=== PATIENT | female | born 1950 | race African-American/Black ===

== ENCOUNTER → 2016-11-11 | Outpatient (CLI) | payer MEDICARE, BC ==
[2014-05-14 08:44] VITALS: BP 109/64
[~2016-11-11] MED LIST: ESTR1TAB15 PO; MEDR2.5T28 PO
--- NOTE | 2016-11-14 16:44 | RAD ---
DATE: 11/14/2016 EXAM: MAMMO CHIDI SCREENING BILATERAL HISTORY: Astigmatic screening mammogram. COMPARISON: Mammogram 12/22/2015, 06/08/2015, 11/29/2013 This study was interpreted with the benefit of Computerized Aided Detection (CAD). The breast parenchyma shows scattered fibroglandular densities. Breast parenchyma level B. FINDINGS: Bilateral CC and MLO views of the breast were performed. Bilateral breasts tomosynthesis acquired. Right breast: No suspicious microcalcifications, masses or areas of architectural distortion . Left breast: No suspicious microcalcifications, masses or areas of architectural distortion. No abnormality identified on breast tomosynthesis. Findings are stable from the prior mammogram. IMPRESSION: Negative bilateral mammogram. Recommend annual screening mammography. BI-RADS CATEGORY: 1 NEGATIVE RECOMMENDED FOLLOW-UP: 12M 12 MONTH FOLLOW-UP PQRS compliance statement: Patient information was entered into a reminder system with a target due date 11/14/2017 for the next mammogram. Mammography is a sensitive method for finding small breast cancers, but it does not detect them all and is not a substitute for careful clinical examination. A negative mammogram does not negate a clinically suspicious finding and should not result in delay in biopsying a clinically suspicious abnormality. "Our facility is accredited by the [employer] Mammography [employer]."
== END | disposition home or self-care (01) ==
LOC: MAMMO 09:08
PROVIDERS: ATTEND Family Medicine
DX: Z12.31 Encounter for screening mammogram for malignant neoplasm of breast (principal)
CPT/HCPCS: 77063; G0202; 77067

== ENCOUNTER → 2017-06-05 | Outpatient (CLI) | payer MEDICARE, BC ==
[2014-05-14 08:44] VITALS: BP 109/64
--- NOTE | 2017-06-05 15:54 | RAD ---
Three-view left shoulder study History: Left shoulder pain. Findings: No acute fracture or dislocation or osteolytic process is seen. 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 IMPRESSION: No acute osseous abnormality.
== END | disposition home or self-care (01) ==
LOC: RAD 13:16
PROVIDERS: ATTEND Orthopaedic Surgery Sports Medicine
DX: M19.012 Primary osteoarthritis, left shoulder (principal)
CPT/HCPCS: 73030

== ENCOUNTER → 2017-11-20 | Outpatient (CLI) | payer MEDICARE, BC ==
[2014-05-14 08:44] VITALS: BP 109/64
--- NOTE | 2017-11-21 09:42 | RAD ---
DATE: 11/20/2017 EXAM: MAMMO CHIDI SCREENING BILATERAL HISTORY: Routine screening COMPARISON: 11/11/2016 This study was interpreted with the benefit of Computerized Aided Detection (CAD). The breast parenchyma shows scattered fibroglandular densities. Breast parenchyma level B. FINDINGS: 2-D and 3-D tomosynthesis imaging was performed in CC and MLO projections. A small benign-appearing lymph node type density is again noted laterally in the right breast. No new or enlarging breast densities are seen. Minimal scattered microcalcifications are present. No suspicious microcalcifications have developed. IMPRESSION: Stable mammograms without evidence of malignancy. BI-RADS CATEGORY: 2 BENIGN FINDING(S) RECOMMENDED FOLLOW-UP: 12M 12 MONTH FOLLOW-UP PQRS compliance statement: Patient information was entered into a reminder system with a target due date for the next mammogram. Mammography is a sensitive method for finding small breast cancers, but it does not detect them all and is not a substitute for careful clinical examination. A negative mammogram does not negate a clinically suspicious finding and should not result in delay in biopsying a clinically suspicious abnormality. "Our facility is accredited by the [employer]ammography [employer]."
== END | disposition home or self-care (01) ==
LOC: MAMMO 11:03
PROVIDERS: ATTEND Family Medicine
DX: Z12.31 Encounter for screening mammogram for malignant neoplasm of breast (principal); M19.012 Primary osteoarthritis, left shoulder
CPT/HCPCS: 77063; 77067

== ENCOUNTER 2018-05-02 06:11 | Emergency (ER) | payer MEDICARE, BC ==
[~2018-05-02] VITALS: Ht 165.1 cm; Wt 78.0 kg
[2018-05-02 06:29] VITALS: BP 158/84
[2018-05-02] MEDS ORDERED: MELO7.5T29 PO (06:43)
[2018-05-02] MEDS ORDERED: AMOX500C PO (06:43)
[2018-05-02] MEDS ORDERED: D-ME118S2 PO (06:44)
--- NOTE | 2018-05-02 06:44 | PHYS DOC ---
Past History Past Medical History: GERD Past Surgical History: Other Smoking: Non-smoker Alcohol Use: None Drug Use: None Adult General Chief Complaint Chief Complaint: Neck Pain HPI HPI Patient is a 67 year old female who presents with neck pain and generalized malaise. This started last night. Patient took ibuprofen which helps but patient awoke at 4:00 this morning with continued symptoms. Patient denies any chest pain. Denies any focal weakness. Denies any fever. Patient reports that she has postnasal drainage but this has been present since an upper respiratory infection approximately 6 years ago. Patient has had similar symptoms previously with an otitis media. Nothing makes current symptoms better or worse. No worsening with exertion or repetitive use. Symptoms are moderate in intensity. Patient presents omeprazole as the medication that she is supposed to be taking for her dizziness.[] Review of Systems Review of Systems Constitutional: Denies fever or chills [] Eyes: Denies change in visual acuity, redness, or eye pain [] HENT: Denies nasal congestion or sore throat [] Respiratory: Denies cough or shortness of breath [] Cardiovascular: No chest pain or palpitations[] GI: Denies abdominal pain, nausea, vomiting, bloody stools or diarrhea [] : Denies dysuria or hematuria [] Musculoskeletal: Denies back pain, 5 days ago she had knee pain after bowling. This has subsequently resolved with ibuprofen[] Integument: Denies rash or skin lesions [] Neurologic: Denies headache, focal weakness or sensory changes [] Endocrine: Denies polyuria or polydipsia [] All other systems were reviewed and found to be within normal limits, except as documented in this note. Allergies Allergies Allergies Coded Allergies Type Severity Reaction Last Updated Verified No Known Drug Allergies 05/02/18 No Physical Exam Physical Exam Constitutional: Well developed, well nourished, no acute distress, non-toxic appearance. [] HENT: Normocephalic, atraumatic, bilateral external ears normal, no pain with tragus tugging. No narrowing or erythematous ear canals. TM on the right is inflamed and slightly bulging, no perforated TM. No mastoid tenderness. Oropharynx moist, no oral exudates, nose normal. [] Eyes: PERRLA, EOMI, conjunctiva normal, no discharge. [] Neck: Normal range of motion, no tenderness, supple, no stridor. Right-sided posterior chain lymphadenopathy is present[] Cardiovascular:Heart rate regular rhythm, no murmur [] Lungs & Thorax: Bilateral breath sounds clear to auscultation [] Abdomen: Bowel sounds normal, soft, no tenderness, no masses, no pulsatile masses. [] Skin: Warm, dry, no erythema, no rash. [] Back: No tenderness, no CVA tenderness. [] Extremities: No tenderness, no cyanosis, no clubbing, ROM intact, no edema. [] Neurologic: Alert and oriented X 3, normal motor function, normal sensory function, no focal deficits noted. Normal rapid repetitive and alternating movements. [] Psychologic: Affect normal, judgement normal, mood normal. [] EKG EKG [] Radiology/Procedures Radiology/Procedures [] Course & Med Decision Making Course & Med Decision Making Pertinent Labs and Imaging studies reviewed. (See chart for details) Medical decision making: Patient appears to have an otitis media potentially complicated by her long-standing postnasal drainage. There is no evidence of a stroke syndrome. There is no evidence of an acute coronary syndrome. No evidence of meningitis or encephalitis.[] Dragon Disclaimer Dragon Disclaimer This electronic medical record was generated, in whole or in part, using a voice recognition dictation system. Departure Departure: Impression: Primary Impression: Otitis media Additional Impression: Malaise Disposition: 01 HOME, SELF-CARE Condition: IMPROVED Referrals: ARINA SHERIDAN MD (PCP) Follow-up in 2 days Patient Instructions: Otitis Media, Adult, Weakness Additional Instructions: Drink plenty of fluids. Follow-up with your regular doctor in 2 days. Take your medication as prescribed. Return to the ER if you develop a fever of more than 101, chest pain, difficulty breathing, or any other concerns. Scripts D-Methorphan Hb/Prometh Hcl (PROMETHAZINE-DM SYRUP) 118 Ml Syrup 5 ML PO PRN Q4HRS for CONGESTION, #120 ML Prov: BERTHA THOMAS DO 05/02/18 Meloxicam (MELOXICAM) 7.5 Mg Tablet 7.5 MG PO DAILY for PAIN, #20 TAB Prov: BERTHA THOMAS DO 05/02/18 Amoxicillin (AMOXICILLIN) 500 Mg Capsule 1 CAP PO BID for ear infection, #20 CAP Prov: BERTHA THOMAS DO 1/30/19 Problem Qualifiers Primary Impression: Otitis media Otitis media type: unspecified Chronicity: acute Qualified Codes: H66.90 - Otitis media, unspecified, unspecified ear BERTHA THOMAS DO May 02, 2018 06:44
== END 2018-05-02 06:49 | disposition home or self-care (01) ==
LOC: ER 06:11
DX: H66.91 Otitis media, unspecified, right ear (principal); M54.2 Cervicalgia; R53.81 Other malaise; R59.1 Generalized enlarged lymph nodes; K21.9 Gastro-esophageal reflux disease without esophagitis
CPT/HCPCS: 99283

== ENCOUNTER → 2019-01-12 | Outpatient (CLI) | payer MEDICARE, BC ==
[~2019-01-12] MED LIST changes: +AMOX500C PO; +MELO7.5T29 PO; +PROM118S9 PO
--- NOTE | 2019-01-12 14:18 | RAD ---
KNEE RIGHT 3V, FOOT LEFT 3V, ANKLE LEFT 3V History: Left ankle swelling and pain, right knee pain and swelling, no known injury Comparison: None. Left ankle radiographs FINDINGS: 3 views of the left ankle are submitted. There are dorsal and plantar calcaneal enthesophytes. No acute fracture or dislocation is identified. There is some soft tissue swelling about the ankle. IMPRESSION: 1. There is some nonspecific soft tissue swelling. 2. There are calcaneal enthesophytes. Left foot radiographs FINDINGS: 3 views left foot are submitted. There is hallux valgus deformity. No acute fracture or dislocation is identified. There is degenerative change of the proximal foot. IMPRESSION: 1. No acute osseous abnormality is identified. Right knee radiographs: Findings: 3 views of the right knee are submitted. There is fairly advanced osteoarthritic change of the lateral compartment, to lesser degree of medial compartment and patellofemoral articulation. There is mild chondrocalcinosis. There is no significant joint effusion. On the lateral view, there is ossific body anteriorly although donor site from fracture not confidently identified by radiograph. There is nonspecific sclerosis of the proximal fibula. Impression: 1. There is tricompartmental osteoarthritic change greatest of the lateral compartment. 2. There is an ossific body anteriorly to the proximal tibia although donor site not confidently identified by radiograph and there is no significant history of recent trauma. 3. There is nonspecific sclerosis of proximal fibula. Electronically signed by: Ze Menard MD (01/12/2019 2:16 PM) [facility]
== END | disposition home or self-care (01) ==
LOC: RAD 11:25
PROVIDERS: ATTEND Nurse Practitioner Adult Health
DX: M17.11 Unilateral primary osteoarthritis, right knee (principal); M11.261 Other chondrocalcinosis, right knee; M77.32 Calcaneal spur, left foot
CPT/HCPCS: 73562; 73610; 73630

== ENCOUNTER → 2019-01-22 | Outpatient (CLI) | payer MEDICARE, BC ==
--- NOTE | 2019-01-22 19:29 | RAD ---
DATE: 01/22/2019 EXAM: MAMMO CHIDI SCREENING BILATERAL HISTORY: Routine screening COMPARISON: 06/08/2015, 11/11/2016, 11/20/2017 mammographic exams This study was interpreted with the benefit of Computerized Aided Detection (CAD). Breast Density: SCATTERED The breast parenchyma shows scattered fibroglandular densities. Breast parenchyma level B. FINDINGS: No suspicious calcification, masses, or distortion. IMPRESSION: Stable BI-RADS CATEGORY: 2 BENIGN FINDING(S) RECOMMENDED FOLLOW-UP: 12M 12 MONTH FOLLOW-UP PQRS compliance statement: Patient information was entered into a reminder system with a target due date for the next mammogram. Mammography is a sensitive method for finding small breast cancers, but it does not detect them all and is not a substitute for careful clinical examination. A negative mammogram does not negate a clinically suspicious finding and should not result in delay in biopsying a clinically suspicious abnormality. "Our facility is accredited by the [employer] Mammography Program."
== END | disposition home or self-care (01) ==
LOC: MAMMO 11:16
PROVIDERS: ATTEND Family Medicine
DX: Z12.31 Encounter for screening mammogram for malignant neoplasm of breast (principal)
CPT/HCPCS: 77063; 77067

== ENCOUNTER 2019-01-28 13:13 | Emergency (ER) | payer MEDICARE, BC ==
[2019-01-28] MEDS ORDERED: IV NORMAL SALINE 1,000ML 1,000 ML IV SCH (13:44)
[2019-01-28 13:56] LABS: BASO % 0 % (0-3); EOS % 1 % (0-3); HEMATOCRIT 37.7 % (36.0-47.0); HEMOGLOBIN 12.3 g/dL (12.0-15.5); LYMPH # 1.4 x10^3/uL (1.0-4.8); LYMPH % 28 % (24-48); MEAN CORPUSCULAR HEMOGLOBIN 30 pg (25-35); MEAN CORPUSCULAR HGB CONC 33 g/dL (31-37); MEAN CORPUSCULAR VOLUME 93 fL (79-100); MONO # 0.3 x10^3/uL (0.0-1.1); MONO % 6 % (0-9); NEUT # 3.4 x10^3uL (1.8-7.7); NEUT % 66 % (31-73); PLATELET COUNT 222 x10^3/uL (140-400); RED BLOOD COUNT 4.06 x10^6/uL (3.50-5.40); RED CELL DISTRIBUTION WIDTH 13.2 % (11.5-14.5); WHITE BLOOD COUNT 5.1 x10^3/uL (4.0-11.0)
[2019-01-28 14:13] LABS: ALBUMIN 3.6 g/dL (3.4-5.0); ALBUMIN/GLOBULIN RATIO 0.8 (1.0-1.7); CALCIUM 8.8 mg/dL (8.5-10.1); CREATININE 0.9 mg/dL (0.6-1.0); GFR 74.9; POTASSIUM 3.7 mmol/L (3.5-5.1); TOTAL BILIRUBIN 0.4 mg/dL (0.2-1.0); TOTAL PROTEIN 8.2 g/dL (6.4-8.2)
--- NOTE | 2019-01-28 14:17 | RAD ---
PORTABLE CHEST 1V Clinical indications: Dyspnea. COMPARISON: December 17, 2013. Findings: No acute lung infiltrate or pleural effusion or pulmonary edema or lung mass or pneumothorax is seen. The heart size, pulmonary vasculature, mediastinum and both bibi are unremarkable. 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 Impression: No acute radiographic abnormality is seen. Electronically signed by: Alex Cboos MD (01/28/2019 2:14 PM) [id number]
[2019-01-28 14:21] LABS: BACTERIA,URINE 0 /HPF (0-FEW); BILIRUBIN,URINE NEG (NEG); CLARITY,URINE HAZY; COLOR,URINE YELLOW; GLUCOSE,URINE NEG (NEG); NITRITE,URINE NEG (NEG); SQUAMOUS EPITHELIAL CELL,UR MOD /LPF; UROBILINOGEN,URINE 0.2 mg/dL (0.2 mg/dL)
--- NOTE | 2019-01-28 14:25 | PHYS DOC ---
Past History Past Medical History: GERD Past Surgical History: Other Smoking: Non-smoker Alcohol Use: None Drug Use: None Adult General Chief Complaint Chief Complaint: LOWER EXT PAIN HPI HPI Patient is a 68-year-old female who presents from Dr. Sheridan's office with report of concern about blood clots. Patient states that she's been having some shortness of breath over the last few days it has been worsening. She also indicates that she's got some swelling in her legs but denies any leg pain. She denies any chest pain but does admit to a cough. She denies fever, nausea or vomiting. Patient states that shortness of breath is worsened with exertion.[] Review of Systems Review of Systems Constitutional: Denies fever or chills [] Respiratory: [place] of cough and shortness of breath [] Cardiovascular: No additional information not addressed in HPI [] GI: Denies abdominal pain, nausea, vomiting or diarrhea [] Integument: Denies rash or skin lesions [] Neurologic: Denies headache, focal weakness or sensory changes [] All other systems were reviewed and found to be within normal limits, except as documented in this note. Current Medications Current Medications Current Medications Medications (Trade) Dose Ordered Sig/Kaila Start Time Stop Time Status Last Admin Dose Admin Sodium Chloride 1,000 ml @ 1,000 mls/hr Q1H 01/28/19 13:44 01/28/19 14:43 Allergies Allergies Allergies Coded Allergies Type Severity Reaction Last Updated Verified No Known Drug Allergies 05/02/18 No Physical Exam Physical Exam Constitutional: Well developed, well nourished, no acute distress, non-toxic appearance. [] HENT: Normocephalic, atraumatic, bilateral external ears normal, oropharynx moist, no oral exudates, nose normal. [] Eyes: PERRLA, EOMI, conjunctiva normal, no discharge. [] Neck: Normal range of motion, no tenderness, supple, no stridor. [] Cardiovascular: Regular rate and rhythm[] Lungs & Thorax: Bilateral breath sounds clear to auscultation [] Abdomen: Bowel sounds normal, soft, no tenderness. [] Skin: Warm, dry, no erythema, no rash. [] Extremities: No tenderness, no cyanosis, no clubbing, ROM intact, with bilateral lower extremity nonpitting edema. [] Neurologic: Alert and oriented X 3, no focal deficits noted. [] Current Patient Data Lab Results Laboratory Tests Test 01/28/19 13:36 White Blood Count 5.1 x10^3/uL (4.0-11.0) Red Blood Count 4.06 x10^6/uL (3.50-5.40) Hemoglobin 12.3 g/dL (12.0-15.5) Hematocrit 37.7 % (36.0-47.0) Mean Corpuscular Volume 93 fL (79-100) Mean Corpuscular Hemoglobin 30 pg (25-35) Mean Corpuscular Hemoglobin Concent 33 g/dL (31-37) Red Cell Distribution Width 13.2 % (11.5-14.5) Platelet Count 222 x10^3/uL (140-400) Neutrophils (%) (Auto) 66 % (31-73) Lymphocytes (%) (Auto) 28 % (24-48) Monocytes (%) (Auto) 6 % (0-9) Eosinophils (%) (Auto) 1 % (0-3) Basophils (%) (Auto) 0 % (0-3) Neutrophils # (Auto) 3.4 x10^3uL (1.8-7.7) Lymphocytes # (Auto) 1.4 x10^3/uL (1.0-4.8) Monocytes # (Auto) 0.3 x10^3/uL (0.0-1.1) Eosinophils # (Auto) 0.0 x10^3/uL (0.0-0.7) Basophils # (Auto) 0.0 x10^3/uL (0.0-0.2) D-Dimer (Rohini) 4.40 mg/L (0.00-0.50) H Sodium Level 142 mmol/L (136-145) Potassium Level 3.7 mmol/L (3.5-5.1) Chloride Level 106 mmol/L (98-107) Carbon Dioxide Level 29 mmol/L (21-32) Anion Gap 7 (6-14) Blood Urea Nitrogen 12 mg/dL (7-20) Creatinine 0.9 mg/dL (0.6-1.0) Estimated GFR (Cockcroft-Gault) 74.9 BUN/Creatinine Ratio 13 (6-20) Glucose Level 91 mg/dL (70-99) Calcium Level 8.8 mg/dL (8.5-10.1) Total Bilirubin 0.4 mg/dL (0.2-1.0) Aspartate Amino Transferase (AST) 21 U/L (15-37) Alanine Aminotransferase (ALT) 15 U/L (14-59) Alkaline Phosphatase 71 U/L (46-116) Troponin I Quantitative < 0.017 ng/mL (0-0.055) OR-Vgu-U-Type Natriuretic Peptide 160 pg/mL (0-124) H Total Protein 8.2 g/dL (6.4-8.2) Albumin 3.6 g/dL (3.4-5.0) Albumin/Globulin Ratio 0.8 (1.0-1.7) L EKG EKG EKG demonstrates normal sinus rhythm with rate of 65.[] Radiology/Procedures Radiology/Procedures [] Impressions: PROCEDURE: VENOUS LOWER EXT BILATERAL Bilateral lower extremity venous doppler ultrasound History: Elevated d-dimer Comparison: None Findings: Multiple grayscale, color, and duplex spectral analysis sonographic images were acquired of the bilateral lower extremity veins to evaluate for the presence of DVT. There is normal phasicity. Normal compression, color-flow, and augmentation is demonstrated from the right common femoral to the popliteal veins. There is abnormal, nonocclusive echogenicity in the left popliteal vein, also probably in the left peroneal vein although is poorly distinguished on this exam. Impression: 1. There is nonocclusive thrombus in the left popliteal vein, also probably of the left peroneal vein although poorly distinguished. 2. There is no evidence of deep venous thrombosis from the right common femoral to popliteal veins.. Critical results discussed with FELIPE BOATENG at 01/28/2019 3:42 PM. Electronically signed by: Daisy Myers MD (01/28/2019 3:42 PM) [id number] DICTATED AND SIGNED BY: DAISY MYERS MD DATE: 01/28/19 1542 CC: FELIPE BOATENG Jr. DO; ARINA SHERIDAN MD ~ Course & Med Decision Making Course & Med Decision Making Pertinent Labs and Imaging studies reviewed. (See chart for details) [] Dragon Disclaimer Dragon Disclaimer This electronic medical record was generated, in whole or in part, using a voice recognition dictation system. Departure Departure: Impression: Primary Impression: DVT (deep venous thrombosis) Disposition: HOME, SELF-CARE Condition: STABLE Referrals: ARINA SHERIDAN MD (PCP) Patient Instructions: Deep Vein Thrombosis Scripts Apixaban (ELIQUIS) 5 Mg Tablet 10 MG PO BID for DVT, #28 TAB Prov: FELIPE BOATENG Jr. DO 01/28/19 Problem Qualifiers Primary Impression: DVT (deep venous thrombosis) DVT location: lower extremity Affected thrombotic vein of extremity: popliteal Chronicity: acute Laterality: left Qualified Codes: I82.432 - Acute embolism and thrombosis of left popliteal vein FELIPE BOATENG Jr. DO Jan 28, 2019 14:25
[2019-01-28] MEDS ORDERED: IOHEXOL 350 MG/ML 100 ML VIAL. IV ONE (14:30)
--- NOTE | 2019-01-28 15:18 | RAD ---
Chest CTA History: Chest pain, shortness of breath Technique: After bolus of intravenous contrast, CT imaging was performed of the chest. Multiplanar reconstruction images to include MIP reconstruction images are submitted. Exposure: One or more of the following individualized dose reduction techniques were utilized for this examination: 1. Automated exposure control 2. Adjustment of the mA and/or kV according to patient size 3. Use of iterative reconstruction technique. Comparison: None Findings: No central pulmonary embolism is identified, limited evaluation of the smaller and more distal branches on this exam due to degree of contrast opacification and mild motion degradation. There is no pleural or pericardial fluid, pneumothorax, or lobar infiltrate. There is scattered mild atelectasis bilaterally. Thoracic aortic caliber is within normal limits about intraluminal flap. There is multilevel thoracic spondylosis and ankylosis. Impression: 1. No central pulmonary embolism is identified, limited evaluation of the smaller and more distal branches on this exam. 2. There is scattered atelectasis bilaterally. Electronically signed by: Ze Menard MD (01/28/2019 3:15 PM) [id number]
--- NOTE | 2019-01-28 15:45 | RAD ---
Bilateral lower extremity venous doppler ultrasound History: Elevated d-dimer Comparison: None Findings: Multiple grayscale, color, and duplex spectral analysis sonographic images were acquired of the bilateral lower extremity veins to evaluate for the presence of DVT. There is normal phasicity. Normal compression, color-flow, and augmentation is demonstrated from the right common femoral to the popliteal veins. There is abnormal, nonocclusive echogenicity in the left popliteal vein, also probably in the left peroneal vein although is poorly distinguished on this exam. Impression: 1. There is nonocclusive thrombus in the left popliteal vein, also probably of the left peroneal vein although poorly distinguished. 2. There is no evidence of deep venous thrombosis from the right common femoral to popliteal veins.. Critical results discussed with FELIPE BOATENG at 01/28/2019 3:42 PM. Electronically signed by: Ze Menard MD (01/28/2019 3:42 PM) [id number]
[2019-01-28 15:52] VITALS: BP 167/88
[2019-01-28] MEDS ORDERED: APIXABAN 5 MG TABLET. PO STA (15:53)
[2019-01-28] MEDS ORDERED: APIX5TAB3 PO (15:56)
--- NOTE | 2019-01-28 16:24 | EKG ---
[address] [address] Test Date: 2019-01-28 Test Time: 13:51:14 Pat Name: SARAHI ZAMORA Department: Room: Gender: F Philosophy And Religion Instructor: DEVON : 1950 Requested By: FELIPE BOATENG Order Number: [id number] Reading MD: Measurements Intervals [place] Rate: 65 P: 41 SD: 148 QRS: -10 QRSD: 80 T: 2 QT: 398 QTc: 415 Interpretive Statements SINUS RHYTHM LEFTWARD AXIS OTHERWISE NORMAL ECG RI6.01 No previous ECG available for comparison
== END 2019-01-28 16:10 | disposition home or self-care (01) ==
LOC: ER 13:13
DX: I82.432 Acute embolism and thrombosis of left popliteal vein (principal); K21.9 Gastro-esophageal reflux disease without esophagitis
CPT/HCPCS: 36415; 71045; 71275; 80053; 81001; 83880; 84484; 85025; 85379; 87086; 93005; 93970; 99285; Q9967

== ENCOUNTER → 2019-03-12 | Day surgery (SDC) | payer MEDICARE, BC ==
[~2019-03-12] MED LIST changes: +APIX5TAB3 PO; +CHOL400C2 PO; +ESTR1TAB88 PO; +FLUT9.9S NS; +PROPOFOL 20 ML IV ONE
[2019-03-12] MEDS: IV RINGERS SOLUTION,LACTATED 1,000 ML IV SCH (11:30)
[2019-03-12 12:36] VITALS: BP 130/67
== END ==
LOC: SURG 10:30
PROVIDERS: ATTEND Internal Medicine Gastroenterology
DX: Z12.11 Encounter for screening for malignant neoplasm of colon (principal); D12.2 Benign neoplasm of ascending colon; J45.909 Unspecified asthma, uncomplicated; Z86.010 Personal history of colon polyps; Z86.718 Personal history of other venous thrombosis and embolism
CPT/HCPCS: 45380; 45385; J2704; J7120

== ENCOUNTER → 2020-01-24 | Outpatient (CLI) | payer MEDICARE, BC ==
[2019-03-12 12:36] VITALS: BP 130/67
[~2020-01-24] MED LIST changes: +PROM118S10 PO; -PROM118S9 PO; -PROPOFOL 20 ML IV ONE
--- NOTE | 2020-01-24 18:36 | RAD ---
DATE: 01/24/2020 EXAM: MAMMO CHIDI SCREENING BILATERAL HISTORY: Screening COMPARISON: 01/22/2019, 11/20/2017, 02/20/2017, 07/19/2010 This study was interpreted with the benefit of Computerized Aided Detection (CAD). Breast Density: SCATTERED The breast parenchyma shows scattered fibroglandular densities. Breast parenchyma level B. FINDINGS: No suspicious mass, suspicious calcification, or architectural distortion in either breast. IMPRESSION: No evidence of malignancy. BI-RADS CATEGORY: 1 NEGATIVE RECOMMENDED FOLLOW-UP: 12M 12 MONTH FOLLOW-UP PQRS compliance statement: Patient information was entered into a reminder system with a target due date for the next mammogram. Mammography is a sensitive method for finding small breast cancers, but it does not detect them all and is not a substitute for careful clinical examination. A negative mammogram does not negate a clinically suspicious finding and should not result in delay in biopsying a clinically suspicious abnormality. "Our facility is accredited by the [employer] Mammography Program."
== END ==
LOC: MAMMO 09:48
PROVIDERS: ATTEND Family Medicine
DX: Z12.31 Encounter for screening mammogram for malignant neoplasm of breast (principal)
CPT/HCPCS: 77063; 77067

== ENCOUNTER 2020-10-13 16:08 | Observation (INO) | payer MEDICARE, BC ==
[~2020-10-13] VITALS: Ht 165.1 cm; Wt 78.0 kg
[~2020-10-13 16:08] MED LIST changes: +ALBU2.5V8 IH; +LISI20TA18 PO; +PANT40TA6 PO
[2020-10-13] MEDS ORDERED: ZOLPIDEM 5 MG TABLET. PO PRN (16:30)
[2020-10-13] MEDS ORDERED: ALBUTEROL SULFATE 2.5 MG/3 ML NEBU. IH PRN (16:30)
[2020-10-13 16:38] VITALS: BP 148/78
[2020-10-13] MEDS: ACETAMINOPHEN 500 MG TABLET PO PRN ×2 (17:17→23:34)
[2020-10-13] MEDS: MAG HYDROX/AL HYDROX/SIMETH 30 ML ORAL.SUSP PO PRN ×2 (17:17→23:34)
[2020-10-13 17:46] VITALS: BP_SYST 129; BP_SYST 132; BP_SYST 137; BP_DIAS 79; BP_DIAS 80; BP_DIAS 81
[2020-10-13 17:58] LABS: ALBUMIN 3.7 g/dL (3.4-5.0); ALBUMIN/GLOBULIN RATIO 0.9 (1.0-1.7); CREATININE 0.9 mg/dL (0.6-1.0); GFR 74.7; POTASSIUM 3.3 mmol/L (3.5-5.1); TOTAL BILIRUBIN 0.7 mg/dL (0.2-1.0); TOTAL PROTEIN 7.9 g/dL (6.4-8.2)
[2020-10-13 18:23] LABS: BILIRUBIN,URINE NEG (NEG); CLARITY,URINE CLEAR; COLOR,URINE YELLOW; GLUCOSE,URINE NEG (NEG); NITRITE,URINE NEG (NEG); UROBILINOGEN,URINE 0.2 mg/dL (0.2 mg/dL)
[2020-10-13 18:24] LABS: BACTERIA,URINE 0 /HPF (0-FEW); RBC,URINE 0 /HPF (0-2); SQUAMOUS EPITHELIAL CELL,UR FEW /LPF; WBC,URINE 0 /HPF (0-4)
[2020-10-13] MEDS ORDERED: ELECTROLYTE (NON-ICU) PROTOCOL. MC PRN (18:30)
[2020-10-13] MEDS ORDERED: POTASSIUM CHLORIDE 20 MEQ TABLET.ER. PO ONE (18:30)
[2020-10-13 19:14] VITALS: BP 97/58
--- NOTE | 2020-10-13 19:48 | EKG ---
[address] [address] Test Date: 2020-10-13 Test Time: 16:48:01 Pat Name: SARAHI ZAMORA Department: Room: 105 A Gender: F Audit Manager: : 1950 Requested By: ARINA SHERIDAN Order Number: [id number] Reading MD: Measurements Intervals [place] Rate: 94 P: 53 [place]: 140 QRS: -7 QRSD: 78 T: 28 QT: 372 QTc: 471 Interpretive Statements SINUS RHYTHM LEFTWARD AXIS R-S TRANSITION ZONE IN V LEADS DISPLACED TO THE LEFT QRS(T) CONTOUR ABNORMALITY CONSIDER ANTEROLATERAL MYOCARDIAL DAMAGE POSSIBLY ABNORMAL ECG RI6.01 Compared to ECG 01/28/2019 13:51:14 Left-axis deviation now present
[2020-10-13] MEDS: APIXABAN 5 MG TABLET. PO SCH (20:35)
[2020-10-13] MEDS ORDERED: ONDANSETRON ODT 4 MG TAB.RAPDIS PO PRN (21:45)
[2020-10-13 23:46] VITALS: BP 128/80
[2020-10-14] MEDS ORDERED: PROP20TA PO (02:03)
[2020-10-14 07:19] LABS: BASO % 0 % (0-3); EOS % 1 % (0-3); HEMOGLOBIN 10.8 g/dL (12.0-15.5); LYMPH # 2.1 x10^3/uL (1.0-4.8); LYMPH % 41 % (24-48); MEAN CORPUSCULAR HEMOGLOBIN 30 pg (25-35); MEAN CORPUSCULAR HGB CONC 33 g/dL (31-37); MEAN CORPUSCULAR VOLUME 93 fL (79-100); MONO # 0.5 x10^3/uL (0.0-1.1); MONO % 11 % (0-9); NEUT # 2.5 x10^3uL (1.8-7.7); NEUT % 47 % (31-73); PLATELET COUNT 213 x10^3/uL (140-400); RED BLOOD COUNT 3.55 x10^6/uL (3.50-5.40); RED CELL DISTRIBUTION WIDTH 13.3 % (11.5-14.5); WHITE BLOOD COUNT 5.2 x10^3/uL (4.0-11.0)
[2020-10-14] MEDS: APIXABAN 5 MG TABLET. PO SCH (07:38)
[2020-10-14] MEDS: LISINOPRIL 20 MG TABLET PO SCH ×2 (07:39→07:43)
--- NOTE | 2020-10-14 08:08 | RAD ---
EXAM: Chest, 2 views. HISTORY: Shortness of breath. COMPARISON: 01/28/2019 FINDINGS: 2 views of the chest are obtained. There is no infiltrate, pleural effusion or pneumothorax . There is linear scarring within the lateral right mid thorax. This is superimposed on chronic appea ring interstitial changes. The heart is normal in size. IMPRESSION: No acute pulmonary finding. Electronically signed by: Yesika Mcclain MD (10/14/2020 8:05 AM) [id number]
[2020-10-14] MEDS ORDERED: FLUTICASONE 50MCG/NASAL SPRAY 16GM BOTTLE. NS SCH (09:00)
[2020-10-14] MEDS ORDERED: PANTOPRAZOLE 40 MG TABLET. PO SCH (09:00)
[2020-10-14] MEDS ORDERED: PROPRANOLOL 20 MG TABLET. PO SCH (09:00)
--- NOTE | 2020-10-14 10:20 | PDOC2 ---
CARDIAC CONSULT DATE OF CONSULT DOS: DATE: 10/14/20 TIME: 10:18 REASON FOR CONSULT Reason for Consult Chest pain REFERRING PHYSICIAN Referring Physician Dr. Mckeon SOURCE Source: Chart review, Patient HPI History of Present Illness This is a 69 yo female who presented secondary to chest pain. Patient reports intermittent pressure in her central chest for the last month or so. Normal resolves with taking baking soda. Not brought on by exertional activities. Occasionally occurs with eating. But other times not associated with oral intake. Over the last couple of days, has been occurring more frequently and has not resolved with baking soda. No specific worsening factors. No associated dizziness, diaphoresis, palpitations, or nausea/vomiting. Pain improved with Mylanta [facility] ED[facility] No recent stress testing. PAST MEDICAL HISTORY Cardiovascular: No pertinent hx Pulmonary: Asthma GI: GERD Heme/Onc: Other (DVT) PAST SURGICAL HISTORY Past Surgical History: Other (bilateral knee surgery ) FAMILY HISTORY Family History: Diabetes, Heart Disease, Stroke SOCIAL HISTORY Smoke: No ALCOHOL: none Drugs: None Lives: Alone CURRENT MEDICATIONS Current Medications Current Medications Albuterol Sulfate (Ventolin) 2.5 mg PRN Q4HRS PRN IH wheezing; Start 10/13/20 at 16:30 Apixaban (Eliquis) 5 mg BID PO Last administered on 10/14/20at 07:38; Start 10/13/20 at 21:00 Lisinopril (Prinivil) 20 mg DAILY PO Last administered on 10/14/20at 07:39; Start 10/14/20 at 09:00 Pantoprazole Sodium (Protonix) 40 mg DAILY PO Last administered on 10/14/20at 07:38; Start 10/14/20 at 09:00 Fluticasone Propionate (Flonase) 2 spray DAILY NS Last administered on 10/14/20at 07:38; Start 10/14/20 at 09:00 Zolpidem Tartrate (Ambien) 5 mg PRN QHS PRN PO INSOMNIA, MAY REPEAT IN 1HR; S tart 10/13/20 at 16:30 Acetaminophen (Tylenol) 500 mg PRN Q6HRS PRN PO MILD PAIN / TEMP > 100.3'F Last administered on 10/13/20at 23:34; Start 10/13/20 at 16:30 Al Hydroxide/Mg Hydroxide (Mylanta Plus Xs) 30 ml PRN Q2HR PRN PO DYSPEPSIA Last administered on 10/13/20at 23:34; Start 10/13/20 at 16:30 Info (Non-Icu Electrolyte Protocol) 1 ea CONT PRN PRN MC PER PROTOCOL; Start 10/13/20 at 18:30 Potassium Chloride (Klor-Con) 40 meq 1X ONCE PO Last administered on 10/13/20at 20:34; Start 10/13/20 at 18:30; Stop 10/13/20 at 18:41; Status DC Ondansetron HCl (Zofran Odt) 4 mg PRN Q6HRS PRN PO NAUSEA/VOMITING Last administered on 10/13/20at 22:05; Start 10/13/20 at 21:45 Propranolol HCl (Inderal) 20 mg DAILY PO Last administered on 10/14/20at 07:44; Start 10/14/20 at 09:00 Active Scripts Active Reported Propranolol Hcl 20 Mg Tablet 1 Tab PO DAILY Proair Hfa Inhaler (Albuterol Sulfate) 8.5 Gm Hfa.aer.ad 2 Puff IH PRN Q4-6HRS PRN 21 Days Lisinopril 20 Mg Tablet 1 Tab PO DAILY Pantoprazole Sodium 40 Mg Tablet.dr 1 Tab PO DAILY Flonase Allergy Relief (Fluticasone Propionate) 9.9 Ml [place].susp 2 Sprays NS DAILY Eliquis (Apixaban) 5 Mg Tablet 5 Mg PO BID Duavee 0.45-20 Mg Tablet (Estrogens,Conj/Bazedoxifene) 1 Each Tablet 1 Each PO DAILY ALLERGIES Allergies: Coded Allergies: No Known Drug Allergies (Unverified , 03/12/19) ROS Review of Systems 14 point ROS conducted with pertinent positives noted above in HPI PHYSICAL EXAM General: Alert, Oriented X3, Cooperative HEENT: Atraumatic Lungs: Clear to auscultation Heart: Regular rate Abdomen: Soft Extremities: No edema, Normal pulses Skin: No breakdown Neuro: Normal speech, Sensation intact Psych/Mental Status: Mental status NL, Mood NL MUSCULOSKELETAL: Osteoarthritic changes both hands VITALS Vital Signs Vital Signs Date Time Temp Pulse Resp B/P (MAP) Pulse Ox O2 Delivery O2 Flow Rate FiO2 10/14/20 08:00 Room Air 10/14/20 07:44 90 128/80 10/13/20 23:46 98.1 20 99 LABS LABS Laboratory Tests Test 10/13/20 17:00 10/13/20 17:29 10/14/20 05:46 Urine Collection Type Unknown Urine Color Yellow Urine Clarity Clear Urine pH 6.0 Urine Specific Only 1.025 Urine Protein Neg (NEG-TRACE) Urine Glucose (UA) Neg mg/dL (NEG) Urine Ketones (Stick) Neg mg/dL (NEG) Urine Blood Trace (NEG) Urine Nitrite Neg (NEG) Urine Bilirubin Neg (NEG) Urine Urobilinogen Dipstick 0.2 mg/dL (0.2 mg/dL) Urine Leukocyte Esterase Neg (NEG) Urine RBC 0 /HPF (0-2) Urine WBC 0 /HPF (0-4) Urine Squamous Epithelial Cells Few /LPF Urine Bacteria 0 /HPF (0-FEW) D-Dimer (Rohini) 0.32 mg/L (0.00-0.50) Sodium Level 146 mmol/L (136-145) Potassium Level 3.3 mmol/L (3.5-5.1) Chloride Level 107 mmol/L (98-107) Carbon Dioxide Level 30 mmol/L (21-32) Anion Gap 9 (6-14) Blood Urea Nitrogen 17 mg/dL (7-20) Creatinine 0.9 mg/dL (0.6-1.0) Estimated GFR (Cockcroft-Gault) 74.7 BUN/Creatinine Ratio 19 (6-20) Glucose Level 99 mg/dL (70-99) Calcium Level 9.0 mg/dL (8.5-10.1) Total Bilirubin 0.7 mg/dL (0.2-1.0) Aspartate Amino Transf (AST/SGOT) 24 U/L (15-37) Alanine Aminotransferase (ALT/SGPT) 22 U/L (14-59) Alkaline Phosphatase 71 U/L (46-116) Creatine Kinase 80 U/L (26-192) Troponin I Quantitative < 0.017 ng/mL (0-0.055) IV-Kkf-A-Type Natriuretic Peptide 432 pg/mL (0-124) Total Protein 7.9 g/dL (6.4-8.2) Albumin 3.7 g/dL (3.4-5.0) Albumin/Globulin Ratio 0.9 (1.0-1.7) White Blood Count 5.2 x10^3/uL (4.0-11.0) Red Blood Count 3.55 x10^6/uL (3.50-5.40) Hemoglobin 10.8 g/dL (12.0-15.5) Hematocrit 33.0 % (36.0-47.0) Mean Corpuscular Volume 93 fL (79-100) Mean Corpuscular Hemoglobin 30 pg (25-35) Mean Corpuscular Hemoglobin Concent 33 g/dL (31-37) Red Cell Distribution Width 13.3 % (11.5-14.5) Platelet Count 213 x10^3/uL (140-400) Neutrophils (%) (Auto) 47 % (31-73) Lymphocytes (%) (Auto) 41 % (24-48) Monocytes (%) (Auto) 11 % (0-9) Eosinophils (%) (Auto) 1 % (0-3) Basophils (%) (Auto) 0 % (0-3) Neutrophils # (Auto) 2.5 x10^3uL (1.8-7.7) Lymphocytes # (Auto) 2.1 x10^3/uL (1.0-4.8) Monocytes # (Auto) 0.5 x10^3/uL (0.0-1.1) Eosinophils # (Auto) 0.0 x10^3/uL (0.0-0.7) Basophils # (Auto) 0.0 x10^3/uL (0.0-0.2) ASSESSMENT/PLAN Assessment/Plan 1. Chest pain, atypical; initial trop negative. Possibly GI in nature 2. GERD 3. H/o DVT; on Eliquis Recommendations Trend troponin Lipids PPI Given risk factors, will arranged outpatient stress test Patient with follow up with primary enchilada maker, Dr. Baca with [facility] LAINE VELAZQUEZ APRN Oct 14, 2020 10:20
[2020-10-14 10:43] VITALS: BP 102/62
--- NOTE | 2020-10-14 21:41 | PN ---
SUBJECTIVE: The patient in with chest pain, shortness of breath, generalized weakness and difficulty breathing. The patient is being seen by cardiology. The patient notes she wakes up in the middle of the night with shortness of breath, so she has nocturnal dyspnea, possibly some chest tightness with that as well. The patient does have some risk factors of family history and the like for heart disease as well as other risk factors on her part as noted. The patient otherwise says she is feeling better this morning. The patient did have a slightly elevated BNP of 430. Her troponins have been negative as her D-dimer. The chest x-ray was basically unremarkable. Otherwise, the patient will be continued to be monitored carefully. Continue with PT, OT. OBJECTIVE: VITAL SIGNS: Blood pressure 102/60, respiratory rate 20, pulse 90, afebrile, 94 on room air. GENERAL: The patient is alert and oriented. LUNGS: Diminished throughout, poor movement of air. CARDIOVASCULAR: Regular sinus rhythm, S1, S2, without murmur, rub, thrill, or extra heart sound. ABDOMEN: Soft, nontender. EXTREMITIES: No clubbing, cyanosis, nor edema. NEUROLOGIC: The patient alert and oriented x3. IMPRESSION AND PLAN: Chest pain, shortness of breath, lightheadedness, near syncope. Continue to monitor the patient, accordingly make further evaluation on her as indicated. EFRAIN DR: Vishnu TID: [id number]
--- NOTE | 2020-10-19 22:43 | DS ---
DATE OF DISCHARGE: 10/14/2020 HOSPITAL COURSE: A 69-year-old female who came in with chest pain, generalized weakness, difficulty breathing. The patient has been seen by cardiology. She wakes up in the middle of the night with shortness of breath, nocturnal dyspnea, possible some chest tightness. The patient was worked up here. Cardiac enzymes were negative. Cardiology will be reviewing her as an outpatient. Her hemoglobin was 10.8 and 33. The patient's chemistries demonstrated a sodium of 146, potassium slightly low at 3.3, BUN and creatinine 17 and 0.9, blood sugar 100. Magnesium 2.4. Liver enzymes were all within range. The patient's cholesterol was 129, LDL 54, HDL of 68. Thyroid was also considered to be within range. The patient's chest x-ray was also normal. There were no abnormal findings there. The patient's EKG demonstrated sinus rhythm with a possible anterior leads showing possible abnormalities there, but will have cardiology review that and make further evaluation per those results. IMPRESSION: Chest pain, nocturnal dyspnea. The patient will be on a heart healthy diet, decreased activity. She will follow up with Dr. Kendrick as an outpatient and make further evaluation on her as indicated per those results. ALEIDA DR: ALEIDA/vin TID: [id number]
== END 2020-10-14 14:57 | disposition home or self-care (01) ==
LOC: INTOOBSV 16:08 → 1 SOUTH 16:08
PROVIDERS: ADMIT Family Medicine; ATTEND Family Medicine
DX: R07.89 Other chest pain (principal); J45.909 Unspecified asthma, uncomplicated; K21.9 Gastro-esophageal reflux disease without esophagitis; Z82.3 Family history of stroke; Z83.3 Family history of diabetes mellitus; Z86.718 Personal history of other venous thrombosis and embolism; Z98.890 Other specified postprocedural states
CPT/HCPCS: 36415; 71046; 80053; 80061; 81001; 82550; 83735; 83880; 84484; 85025; 85379; 93005; G0378; G0379; Q0162

== ENCOUNTER → 2020-11-18 | Outpatient (CLI) | payer MEDICARE, BC ==
[~2020-11-18] MED LIST changes: +PROP20TA PO; +REGADENOSON 0.4 MG/5 ML DISP.SYRIN. IV ONE
--- NOTE | 2020-11-18 13:15 | RAD ---
MR#: [id number] Date of Study: 11/18/2020 Ordering Physician: PASHA WALSH, Referring Physician: CLOVER BURTON Tech: RT Tawny Rodriguez) (N) APPROVED REPORT Test Type: Pharmacological Stress Nurse/Tech: RT Michael (Ariel) (N) Test Indications: palpitations, dizzy, dyspnea Cardiac History: none Medications: see ehr Medical History: asthma, hypertension Resting ECG: sinus rhythm Resting Heart Rate: 52 bpm Resting Blood Pressure: 134/67mmHg Pretest Chest Pain: None Nurse/Tech Notes Consent: The procedure was explained to the patient in lay terms. Informed consent was witnessed. Anant eout was entered into [employer]. History and Stress Test performed by RT Michael (Ariel) (N) Pharm. Details Pharmacologic stress testing was performed using 0.4mg per 5ml of regadenoson given intravenously ove r 7-10 seconds. POST EXERCISE Reason for Termination: Infusion complete Max HR: 128 bpm Max Blood Pressure: 143/64mmHg INTERPRETATION Stress EKG Conclusion: The resting EKG shows a sinus rhythm with mild nonspecific ST-T wave changes. The stress EKG shows no significant changes from baseline. No EKG evidence of stress-induced ischemia. Imaging Protocol IMAGE PROTOCOL: Rest Tc-99m/stress Tc-99m 1 day Rest: Stress: Viability: Radiopharm.Tc99m [id number] Sestamibi Dose10.5mCi 30.2mCi Duration 15min. 10min. Img Date 11/18/2020 11/18/2020 Inj-Img [id number]. 60min. Rest Admin Site:IV - Right AntecubitalAdministrator: RT Tawny Rodriguez)(N) Stress Admin Site: IV - Right AntecubitalAdministrator: RT Tawny Rodriguez)(N) STRESS DATA End Diast. Vol.73.0mlAv. Heart Rate78.0bpm End Syst. Vol.11.0mlCO Index BSA0.0L/min Myocardial Meln501.0gEject. Pxurjkte71.0% Stress Rates Pk. Fill Rate3.43EDV/secLVtime Pk. Fill 146.43msec Pk. Empty Rate4.43ESV/secLVtime Pk. Txrlm802.86msec /3 Pk. Fill1.61EDV/sec Stress Scores Regional WT0.00Summed WT0.00 Regional WM0.00Summed WM0.00 LV Perfusion The stress scans show no significant defects. The rest scans showed no significant defects. Nuclear imaging shows no reversible ischemia or infarct. Wall Motion Left ventricular systolic function is normal with an ejection fraction of greater than 70%. LV Perf. Quant 17 Seg. SSS10.00 17 Seg. SRS21.00 17 Seg. SDS0.00 Stress Defect Extent (% LAD)4.40Rest Defect Extent (% LAD)19.40Rev. Defect Extent (% LAD)0.00 Stress Defect Extent (% LCX) 55.00Rest Defect Extent (% LCX)77.50Rev. Defect Extent (% LCX)0.00 Stress Defect Extent (% RCA)0.00Rest Defect Extent (% RCA)66.70Rev. Defect Extent (% RCA)0.00 Stress Defect Extent (% GILDARDO)16.70Rest Defect Extent (% GILDARDO)50.20Rev. Defect Extent (% GILDARDO)0.00 Conclusion 1. No EKG evidence of stress-induced ischemia. 2. Nuclear imaging shows no reversible ischemia or infarct. 3. Left ventricular systolic function is normal with an ejection fraction of greater than 70%. 4. Low risk Lexiscan nuclear stress test. Signed by : David Pierce MD Electronically Approved : 11/18/2020 13:14:50
== END ==
LOC: NM 07:54
PROVIDERS: ATTEND Internal Medicine Cardiovascular Disease
DX: R07.9 Chest pain, unspecified (principal)
CPT/HCPCS: 78452; 93017; A9500; J2785

== ENCOUNTER → 2021-02-18 | Outpatient (CLI) | payer MEDICARE, BC ==
[~2021-02-18] MED LIST changes: -REGADENOSON 0.4 MG/5 ML DISP.SYRIN. IV ONE
--- NOTE | 2021-02-18 12:15 | RAD ---
BILATERAL DIGITAL SCREENING 2-D AND 3-D MAMMOGRAM INDICATION: Routine screening. Patient history sheet is available for review. COMPARISON: January 24, 2020, November 11, 2016, January 22, 2019 Interpretation was made using CAD. FINDINGS: Breast Density: There are scattered areas of fibroglandular density. RIGHT BREAST: No suspicious masses, calcifications or areas of architectural distortion are seen. LEFT BREAST: No suspicious masses, calcifications or areas of architectural distortion are seen. IMPRESSION: 1. No imaging evidence of malignancy. ASSESSMENT: BI-RADS 1. Negative. RECOMMENDATION: Routine annual screening mammogram. The facility will notify the patient of the results via mail. Patient information will be entered int o the mammography reminder system with a target recall date for the next mammogram. A reminder letter will be generated by the facility. Electronically signed by: Yary Mathis MD (02/18/2021 12:13 PM) [id number]
== END ==
LOC: MAMMO 11:22
PROVIDERS: ATTEND Family Medicine
DX: Z12.31 Encounter for screening mammogram for malignant neoplasm of breast (principal)
CPT/HCPCS: 77063; 77067

== ENCOUNTER → 2021-08-23 | Outpatient (CLI) | payer MEDICARE, BC ==
--- NOTE | 2021-08-24 08:10 | RAD ---
INDICATION: Follow-up of deep vein thrombosis COMPARISON: January 2019 TECHNIQUE: Grayscale, color and doppler ultrasound images were obtained of the left lower extremity v enous vasculature. LEFT: Common femoral and superficial femoral vein are patent. Nonocclusive thrombus at left popliteal vein again seen. Calf veins are partially seen and patent in visualized portion IMPRESSION: * Repeat demonstration of partial thrombus of the popliteal vein. Comparable to prior. Electronically signed by: Malvin Lau MD (08/24/2021 8:08 AM) [id number]
== END ==
LOC: US 15:50
PROVIDERS: ATTEND Family Medicine
DX: I82.432 Acute embolism and thrombosis of left popliteal vein (principal); I82.412 Acute embolism and thrombosis of left femoral vein; I87.2 Venous insufficiency (chronic) (peripheral); G44.1 Vascular headache, not elsewhere classified; J01.11 Acute recurrent frontal sinusitis
CPT/HCPCS: 93971

== ENCOUNTER → 2021-08-31 | Outpatient (CLI) | payer MEDICARE, BC ==
--- NOTE | 2021-08-31 17:29 | RAD ---
EXAM: 3 views sinuses DATE: 08/31/2021 2:44 PM INDICATION: SINUSITIS COMPARISON: No Prior FINDINGS: Radiopaque density projects over the left face on the AP view, possibly external to the patient. Thic kening of the right maxillary sinus is suspected. Otherwise the paranasal sinuses are clear but can b e better assessed by CT. IMPRESSION: Thickening of the right maxillary sinus is suspected. This can be better assessed by CT. Electronically signed by: Maximino Hurt MD (08/31/2021 5:26 PM) JUAN
== END ==
LOC: RAD 14:32
PROVIDERS: ATTEND Otolaryngology
DX: J32.1 Chronic frontal sinusitis (principal)
CPT/HCPCS: 70220